=== PATIENT | male | born 1965 | race Caucasian/White ===

== ENCOUNTER 2016-09-22 00:27 | Emergency (ER) | payer OTHER ==
[~2016-09-22] VITALS: Ht 182.9 cm; Wt 81.6 kg
[2016-09-22 01:06] LABS: Basophils # (auto) 0.1 uL; Basophils % (auto) 0.5 % (0.0-2.0); CONDITION Y; DEFINITIVE SEE PRINTOUT; Eosinophils # (auto) 0.3 uL; Hematocrit 33.4 % (41.0-53.0); Hemoglobin 11.2 g/dL (13.5-17.5); Lymphocytes # (auto) 1.3 uL; Lymphocytes % (auto) 9.7 % (10.0-50.0); Mean Corpuscular Hemoglobin 32.5 pg (28.0-32.0); Mean Corpuscular Hgb Conc. 33.5 g/dL (32.0-36.0); Mean Corpuscular Volume 97.1 fL (80.0-100.0); Mean Platelet Volume 6.2 fL (7.4-10.4); Monocytes # (auto) 1.1 uL; Monocytes % (auto) 8.2 % (0.0-12.0); Neutrophils # (auto) 10.9 uL; Neutrophils % (auto) 79.6 % (37.0-80.0); Red Cell Distribution Width 13.6 % (11.6-16.0); White Blood Cell 13.7 10^3/uL (4.4-10.8)
[2016-09-22 01:16] LABS: Platelet Count (auto) 942 10^3/uL (140-450)
[2016-09-22 01:21] LABS: INR 0.96 (0.9-1.15); Partial Thromboplastin Time 26.1 sec (22.64-33.71); Prothrombin Time 10.5 sec (9.37-12.3)
[2016-09-22 01:26] LABS: Albumin 2.7 g/dL (3.4-5.0); Anion Gap 9 (5-15); BUN/Creatinine Ratio 8.5; Blood Urea Nitrogen 7 mg/dL (7-18); Calcium 8.2 mg/dL (8.5-10.1); Carbon Dioxide 27 mmol/L (21-32); Chloride 101 mmol/L (98-107); GFR African American 126 mL/min; GFR Non-African American 104 mL/min; Glucose 106 mg/dL (74-106); Magnesium 2.4 mg/dL (1.6-2.6); Potassium 4.1 mmol/L (3.5-5.1); Sodium 137 mmol/L (136-145)
[2016-09-22 01:28] LABS: B-Type Natriuretic Peptide 79.2 pg/mL (0-100); Temperature: 21.6 C (20.0-25.0)
[2016-09-22 01:39] LABS: Alkaline Phosphatase 132 U/L (45-117); Aspartate Aminotransferase 9 U/L (15-37); Bilirubin, Total 0.5 mg/dL (0.2-1.0); Total Protein 6.6 g/dL (6.4-8.2)
[2016-09-22] MEDS ORDERED: ALBUTEROL SULF 2.5 MG/0.5ML(0.5%) NEB SOLN NEB ONE (02:15)
[2016-09-22] MEDS ORDERED: IPRATROPIUM BROM 0.5 MG/2.5ML INH SOL NEB ONE (02:15)
[2016-09-22 03:25] VITALS: BP 146/91
== END 2016-09-22 06:01 | disposition home or self-care (01) ==
LOC: ER 00:28
DX: R14.3 Flatulence (principal); R14.1 Gas pain; R14.2 Eructation; J45.909 Unspecified asthma, uncomplicated; Z93.3 Colostomy status; Z47.1 Aftercare following joint replacement surgery
CPT/HCPCS: 36415; 71010; 80053; 83735; 83880; 84484; 85025; 85379; 85610; 85730; 93005; 94640

== ENCOUNTER 2016-12-05 16:02 | Emergency (ER) | payer OTHER ==
[~2016-12-05] VITALS: Ht 172.7 cm; Wt 77.1 kg
[2016-12-05 18:07] LABS: Hematocrit 28.8 % (41.0-53.0); Hemoglobin 9.2 g/dL (13.5-17.5); Mean Corpuscular Hemoglobin 24.7 pg (28.0-32.0); Mean Corpuscular Hgb Conc. 32.1 g/dL (32.0-36.0); Mean Corpuscular Volume 76.8 fL (80.0-100.0); Mean Platelet Volume 6.8 fL (6.9-10.8); Platelet Count (auto) 578 10^3/uL (140-450); Red Cell Distribution Width 16.4 % (11.8-14.3); White Blood Cell 18.1 10^3/uL (4.4-10.8)
[2016-12-05 18:23] LABS: Metamyelocytes % 0; Myelocytes % 0; Promyelocytes % 0; Reactive Lymphocytes 0
[2016-12-05 18:24] LABS: Albumin 2.6 g/dL (3.4-5.0); BUN/Creatinine Ratio 24.2; Bilirubin, Total 0.3 mg/dL (0.2-1.0); Calcium 7.9 mg/dL (8.5-10.1); Potassium 3.1 mmol/L (3.5-5.1); Total Protein 6.3 g/dL (6.4-8.2)
[2016-12-05 19:13] LABS: Large Platelets FEW
[2016-12-05 19:14] LABS: Hypochromia Slight; Microcytosis Slight; Platelet Estimate Increa; Stomatocytes Few
[2016-12-05 20:10] LABS: Urine RBC None Seen /hpf (0 - 3)
[2016-12-05 20:23] LABS: Urine Bilirubin Negative (Negative); Urine Blood Negative /uL (Negative); Urine Color Yellow (Yellow); Urine Glucose Normal (Normal); Urine Hyaline Cast FEW /lpf (0 - 2); Urine Ketone 2+ (Negative); Urine Nitrite Negative (Negative); Urine Urobilinogen Normal (Negative); Urine pH 5.5 (5.0-8.0)
[2016-12-05] MEDS ORDERED: PANTOPRAZOLE 40 MG/10 ML VIAL IV ONE (21:45)
[2016-12-05] MEDS ORDERED: SODIUM CHLORIDE 0.9% 1,000 ML IV ONE (21:45)
[2016-12-05 22:56] LABS: INR 1.01 (0.9-1.15); Partial Thromboplastin Time 25.3 sec (22.64-33.71)
[2016-12-06] MEDS ORDERED: cefTRIAXone 1GM/50ML D5W 50 ML IV ONE (00:15)
[2016-12-06] MEDS ORDERED: SODIUM CHLORIDE 0.9% 1,000 ML IV ONE (00:15)
[2016-12-06] MEDS ORDERED: POTASSIUM CHL 20 Meq TABLET PO ONE (00:15)
[2016-12-06] MEDS ORDERED: metroNIDAZOLE 500MG/100ML 100 ML IV ONE (02:30)
[2016-12-06] MEDS ORDERED: MORPHINE SULF INJ 2 MG/ML SYRINGE 1ML IV ONE (02:45)
[2016-12-06] MEDS ORDERED: ONDANSETRON HCL 4 MG/2 ML VIAL IV ONE (02:45)
[2016-12-06 04:03] VITALS: BP 106/63
== END 2016-12-06 04:32 | disposition short-term general hospital (02) ==
LOC: EDBD 16:02 → ER 16:02
DX: K85.90 Acute pancreatitis without necrosis or infection, unspecified (principal); D72.829 Elevated white blood cell count, unspecified; J45.909 Unspecified asthma, uncomplicated
CPT/HCPCS: 36415; 71010; 74176; 80053; 81001; 83605; 83690; 85007; 85027; 85610; 85730; 87040; 93005; 96361; 96365; 96367; 96375; 99285; C9113; J0696; J2270; J2405; J3490; J7030

== ENCOUNTER 2023-02-04 16:27 | Inpatient (IN) | payer OTHER ==
[~2023-02-04] VITALS: Ht 182.9 cm; Wt 69.0 kg
[~2023-02-04 16:27] MED LIST: CELE100C82 PO
[2023-02-04] MEDS ORDERED: SODIUM CHLORIDE 0.9% 1,000 ML IV ONE (17:00)
[2023-02-04] MEDS ORDERED: PANTOPRAZOLE 40 MG/10 ML VIAL INJ IV ONE (17:00)
[2023-02-04 17:36] LABS: Hemoglobin 18.1 g/dL (13.5-17.5)
[2023-02-04 17:39] LABS: Hematocrit 52.7 % (41.0-53.0); Mean Corpuscular Hemoglobin 31.2 pg (28.0-32.0); Mean Corpuscular Hgb Conc. 34.4 g/dL (32.0-36.0); Mean Corpuscular Volume 90.9 fL (80.0-100.0); Red Cell Distribution Width 14.5 % (11.8-14.3)
[2023-02-04 17:45] LABS: White Blood Cell 32.2 10^3/uL (4.4-10.8)
[2023-02-04 17:47] LABS: Basophils % (manual) 0 (0.0-2.0); Blast Cells 0; Eosinophils % (manual) 0 (0-7); Metamyelocytes % 0; Myelocytes % 0; Promyelocytes % 0; Reactive Lymphocytes 0
[2023-02-04 17:50] LABS: INR 1.43 (0.9-1.15); Partial Thromboplastin Time 30.9 SEC (24.5-34.5); Prothrombin Time 14.7 sec (9.3-11.8)
[2023-02-04] MEDS ORDERED: PIPERACILLIN-TAZOB 3.375GM 100 ML IV ONE (18:00)
[2023-02-04 18:02] LABS: Alanine Aminotransferase 21 U/L (7-40); Albumin 4.2 g/dL (3.2-4.8); Alkaline Phosphatase 177 U/L (46-116); Anion Gap 13 (5-15); Aspartate Aminotransferase 26 U/L (13-40); BUN/Creatinine Ratio 17.9 (10.0-20.0); Bilirubin, Total 0.7 mg/dL (0.2-1.0); Blood Urea Nitrogen 12 mg/dL (9-23); Carbon Dioxide 29 mmol/L (20-30); Chloride 95 mmol/L (98-107); Glucose 98 mg/dL (74-106); Potassium 2.9 mmol/L (3.5-5.1); Sodium 137 mmol/L (136-145)
[2023-02-04 18:18] LABS: Band Neutrophils % (manual) 3; Lymphocytes % (manual) 4 (10.0-50.0); Monocytes % (manual) 2 (0-12)
[2023-02-04 18:20] LABS: Platelet Estimate Adequate
[2023-02-04] MEDS ORDERED: ONDANSETRON HCL 4 MG/2 ML VIAL IV ONE (19:15)
[2023-02-04] MEDS ORDERED: POTASSIUM CHL 20 Meq TABLET PO ONE (19:15)
[2023-02-04 19:39] LABS: Hematocrit 47.3 % (41.0-53.0); Mean Corpuscular Hgb Conc. 33.9 g/dL (32.0-36.0); Mean Corpuscular Volume 91.5 fL (80.0-100.0); Red Blood Cells 5.16 10^6/uL (4.5-5.90); Red Cell Distribution Width 14.4 % (11.8-14.3)
[2023-02-04 19:46] LABS: White Blood Cell 30.5 10^3/uL (4.4-10.8)
[2023-02-04 19:48] LABS: Basophils % (manual) 0 (0.0-2.0); Blast Cells 0; Eosinophils % (manual) 0 (0-7); Metamyelocytes % 0; Myelocytes % 0; Promyelocytes % 0; Reactive Lymphocytes 0
[2023-02-04 19:59] LABS: Band Neutrophils % (manual) 6; Lymphocytes % (manual) 3 (10.0-50.0); Monocytes % (manual) 3 (0-12)
[2023-02-04 20:00] VITALS: PULSE 78; RESP 18; O2SAT 97
[2023-02-04 20:00] LABS: Platelet Estimate Adequate
[2023-02-04] MEDS ORDERED: POTASSIUM EFFERVESENT TAB 25 MEQ PO ONE (20:15)
[2023-02-04 21:37] LABS: COVID19 ANTIGEN SOFIA FIA NEGATIVE (NEGATIVE)
[2023-02-04 22:48] LABS: Urine Bacteria NONE SEEN /hpf (None Seen); Urine Blood Negative /uL (Negative); Urine Clarity Clear (Clear); Urine Color Yellow (Yellow); Urine Mucus FEW (None Seen); Urine Protein, UAD 1+ (Negative); Urine Specific Gravity 1.029 (1.001-1.035); Urine Urobilinogen Normal (Negative); Urine WBC 2 /hpf (0 - 3)
[2023-02-04 23:17] LABS: Hematocrit 49.5 % (41.0-53.0); Hemoglobin 16.7 g/dL (13.5-17.5); Mean Corpuscular Hemoglobin 30.9 pg (28.0-32.0); Mean Corpuscular Hgb Conc. 33.7 g/dL (32.0-36.0); Mean Corpuscular Volume 91.6 fL (80.0-100.0); Red Cell Distribution Width 14.9 % (11.8-14.3); White Blood Cell 29.9 10^3/uL (4.4-10.8)
[2023-02-04 23:23] LABS: Basophils % (manual) 0 (0.0-2.0); Blast Cells 0; Metamyelocytes % 0; Myelocytes % 0; Promyelocytes % 0; Reactive Lymphocytes 0
[2023-02-04 23:51] LABS: Band Neutrophils % (manual) 6; Eosinophils % (manual) 1 (0-7); Lymphocytes % (manual) 3 (10.0-50.0); Monocytes % (manual) 8 (0-12)
[2023-02-04 23:52] LABS: Platelet Estimate Adequate
[2023-02-05] VITALS (8 sets, daily range): BP systolic 121–136; BP diastolic 75–90; PULSE 71–84; RESP 16–19; TEMP 98.2–98.6; O2SAT 94–98
[2023-02-05] MEDS ORDERED: ONDANSETRON HCL 4 MG/2 ML VIAL IV PRN (01:00)
[2023-02-05] MEDS ORDERED: ACETAMINOPHEN 325 MG TAB PO PRN (01:00)
[2023-02-05] MEDS: MORPHINE SULFATE INJ 2 MG/ml SYRG IV PRN ×3 (04:59→18:23)
[2023-02-05] MEDS: PIPERACILLIN-TAZOB 3.375GM 100 ML IV SCH ×2 (06:40→12:33)
[2023-02-05] MEDS ORDERED: PANTOPRAZOLE 40 MG TAB PO SCH (10:00)
[2023-02-05] MEDS ORDERED: COLC1TAB3 PO (10:29)
[2023-02-05] MEDS ORDERED: VANCOMYCIN HCL 125MG/5ML ORAL SOL PO ONE (15:30)
[2023-02-05] MEDS ORDERED: THIAMINE 100mg/ml INJ (200mg/2ml VIAL) IV ONE (15:30)
[2023-02-05] MEDS: D5W/SOD CHL 0.45%/KCL 40MEQ 1,000 ML IV SCH (18:14)
[2023-02-05] MEDS: VANCOMYCIN HCL 125MG/5ML ORAL SOL PO SCH (21:17)
[2023-02-05] MEDS: metroNIDAZOLE 500 MG TAB PO SCH (21:17)
[2023-02-05] MEDS: HYDROcodone-ACET 5/325MG TAB PO PRN (23:39)
[2023-02-06] VITALS (10 sets, daily range): BP systolic 126–167; BP diastolic 86–97; PULSE 63–88; RESP 12–18; TEMP 98.2–98.7; O2SAT 96–100
[2023-02-06] MEDS: MORPHINE SULFATE INJ 2 MG/ml SYRG IV PRN ×4 (01:35→21:48)
[2023-02-06] MEDS: D5W/SOD CHL 0.45%/KCL 40MEQ 1,000 ML IV SCH ×3 (04:50→21:23)
[2023-02-06] MEDS: VANCOMYCIN HCL 125MG/5ML ORAL SOL PO SCH ×4 (06:00→23:57)
[2023-02-06] MEDS: metroNIDAZOLE 500 MG TAB PO SCH ×3 (06:00→21:43)
[2023-02-06 06:19] LABS: Basophils # (auto) 0 10 ^3/uL (0-0.2); Basophils % (auto) 0.3 % (0.0-2.0); Eosinophils # (auto) 0.4 10 ^3/uL (0-0.8); Eosinophils % (auto) 2.8 % (0.0-7.0); Hematocrit 43.5 % (41.0-53.0); Hemoglobin 14.8 g/dL (13.5-17.5); Lymphocytes # (auto) 1.2 10 ^3/uL (0.4-5.4); Lymphocytes % (auto) 8.6 % (10.0-50.0); Mean Corpuscular Hgb Conc. 34.1 g/dL (32.0-36.0); Monocytes # (auto) 1.1 10 ^3/uL (0-1.3); Monocytes % (auto) 7.9 % (0.0-12.0); Neutrophils # (auto) 11.4 10 ^3/uL (1.6-8.6); Neutrophils % (auto) 80.4 % (37.0-80.0); Nucleated Red Blood Cells % 0.1 %; Red Blood Cells 4.79 10^6/uL (4.5-5.90); Red Cell Distribution Width 14.7 % (11.8-14.3); White Blood Cell 14.2 10^3/uL (4.4-10.8)
[2023-02-06 07:03] LABS: Alanine Aminotransferase 14 U/L (7-40); Albumin 3.1 g/dL (3.2-4.8); Alkaline Phosphatase 97 U/L (46-116); Anion Gap 8 (5-15); Aspartate Aminotransferase 16 U/L (13-40); Calcium 7.4 mg/dL (8.7-10.4); Carbon Dioxide 27 mmol/L (20-30); Chloride 101 mmol/L (98-107); Glucose 91 mg/dL (74-106); Potassium 2.8 mmol/L (3.5-5.1); Sodium 136 mmol/L (136-145); Uric Acid 7.2 mg/dL (3.7-9.2)
[2023-02-06 07:04] LABS: Bilirubin, Total 0.7 mg/dL (0.2-1.0)
[2023-02-06 07:12] LABS: BUN/Creatinine Ratio 9.4 (10.0-20.0); Blood Urea Nitrogen < 5 mg/dL (9-23)
[2023-02-06] MEDS: FLORASTOR (S. BOULARDII) 250 MG CAP PO SCH (09:57)
[2023-02-06] MEDS: THIAMINE 100mg/ml INJ (200mg/2ml VIAL) IV SCH (09:57)
[2023-02-06] MEDS: PANTOPRAZOLE 40 MG/10 ML VIAL INJ IV SCH (09:57)
[2023-02-06] MEDS ORDERED: POTASSIUM CHLORIDE 40 MEQ, LIDOCAINE 1% (LOCAL ANESTH.) 4 ML in SODIUM CHL 0.9% 250 ML IV ONE (12:45)
[2023-02-06] MEDS ORDERED: POTASSIUM EFFERVESENT TAB 25 MEQ PO ONE (12:45)
[2023-02-06] MEDS ORDERED: cefTRIAXone 1GM/50ML D5W 50 ML IV ONE (13:00)
[2023-02-06] MEDS ORDERED: SODIUM CHL 0.9% 50 ML ONE ×2 (15:39→16:51)
[2023-02-06] MEDS ORDERED: MIDAZOLAM HCL 2MG/2ML 2ml VIAL (1mg/ml) ONE (15:39)
[2023-02-06] MEDS ORDERED: fentaNYL CITRATE 100 MCG/2 ML VL ONE (15:39)
[2023-02-06] MEDS ORDERED: LIDOCAINE 2%HCL (LOCAL ANESTH.) INJ 20ML MDV ONE (15:39)
[2023-02-06] MEDS ORDERED: ANGIOMAX 250 MG VIAL IV ONE ×2 (15:39→16:51)
[2023-02-06] MEDS ORDERED: IOHEXOL 350 MG/ML 100ML IJ ONE ×2 (15:40→16:26)
[2023-02-06] MEDS ORDERED: IODIXANOL 320MG/ML 100ML BTL IV ONE (17:38)
[2023-02-06] MEDS: RIVAROXABAN 2.5 MG TAB PO SCH (22:00)
[2023-02-07] MEDS: MORPHINE SULFATE INJ 2 MG/ml SYRG IV PRN ×2 (03:55→10:23)
[2023-02-07 04:00] VITALS: BP 152/83; PULSE 79; RESP 17; TEMP 98.5; O2SAT 96
[2023-02-07] MEDS: metroNIDAZOLE 500 MG TAB PO SCH ×2 (06:19→14:04)
[2023-02-07] MEDS: VANCOMYCIN HCL 125MG/5ML ORAL SOL PO SCH ×3 (06:19→18:02)
[2023-02-07 06:52] LABS: Basophils # (auto) 0 10 ^3/uL (0-0.2); Basophils % (auto) 0.5 % (0.0-2.0); Eosinophils # (auto) 0.4 10 ^3/uL (0-0.8); Hematocrit 41.3 % (41.0-53.0); Hemoglobin 14.3 g/dL (13.5-17.5); Mean Corpuscular Hemoglobin 31.2 pg (28.0-32.0); Mean Corpuscular Hgb Conc. 34.7 g/dL (32.0-36.0); Monocytes # (auto) 1.5 10 ^3/uL (0-1.3); Monocytes % (auto) 13.8 % (0.0-12.0); Neutrophils # (auto) 7.8 10 ^3/uL (1.6-8.6); Neutrophils % (auto) 72.7 % (37.0-80.0); Red Blood Cells 4.59 10^6/uL (4.5-5.90); Red Cell Distribution Width 14.3 % (11.8-14.3); White Blood Cell 10.7 10^3/uL (4.4-10.8)
[2023-02-07 08:00] VITALS: PULSE 88
[2023-02-07 09:00] VITALS: BP 147/95; PULSE 89; RESP 18; TEMP 98.4; O2SAT 97
[2023-02-07] MEDS ORDERED: cefTRIAXone 1GM/50ML D5W 50 ML IV SCH (09:00)
[2023-02-07] MEDS: RIVAROXABAN 2.5 MG TAB PO SCH (10:00)
[2023-02-07] MEDS: THIAMINE 100mg/ml INJ (200mg/2ml VIAL) IV SCH (10:22)
[2023-02-07] MEDS: PANTOPRAZOLE 40 MG/10 ML VIAL INJ IV SCH (10:22)
[2023-02-07] MEDS: FLORASTOR (S. BOULARDII) 250 MG CAP PO SCH (10:22)
[2023-02-07] MEDS ORDERED: THIAMINE HCL 100 MG TAB PO ONE (12:15)
[2023-02-07 13:00] VITALS: BP 125/72; PULSE 76; RESP 16; TEMP 98.8; O2SAT 99
[2023-02-07] MEDS: HYDROcodone-ACET 5/325MG TAB PO PRN (15:26)
[2023-02-07 16:46] VITALS: BP 132/82; PULSE 79; RESP 17; TEMP 98.7; O2SAT 97
[2023-02-07 18:16] VITALS: TEMP 37.1
[2023-02-08] MEDS ORDERED: THIAMINE HCL 100 MG TAB PO SCH (10:00)
== END 2023-02-07 22:00 | disposition short-term general hospital (02) | DRG 854 ==
LOC: ER 16:27 → EDBD 16:27 → OVERFLOW 02-05 00:59 → EAST 02-05 10:01 → TELE-EAST 02-05 10:03
PROVIDERS: ADMIT Nurse Practitioner; ATTEND Internal Medicine
PROC: 047 Lower Arteries, Dilation (ICD-10-PCS; principal; 2023-02-06)
PROC: B41GYZZ Fluoroscopy of Left Lower Extremity Arteries using Other Contrast (ICD-10-PCS; 2023-02-06)
PROC: B41FYZZ Fluoroscopy of Right Lower Extremity Arteries using Other Contrast (ICD-10-PCS; 2023-02-06)
DX: A41.9 Sepsis, unspecified organism (principal); A04.72 Enterocolitis due to Clostridium difficile, not specified as recurrent; K92.2 Gastrointestinal hemorrhage, unspecified; E87.6 Hypokalemia; M10.9 Gout, unspecified; I73.9 Peripheral vascular disease, unspecified; E88.09 Other disorders of plasma-protein metabolism, not elsewhere classified; Z20.822 Contact with and (suspected) exposure to COVID-19; I10 Essential (primary) hypertension; J45.909 Unspecified asthma, uncomplicated; Z87.11 Personal history of peptic ulcer disease; Z93.3 Colostomy status; Z87.891 Personal history of nicotine dependence
CPT/HCPCS: 36415; 37226; 73700; 74176; 75716; 80053; 81001; 82270; 83605; 83690; 84132; 84425; 84484; 84550; 85007; 85025; 85027; 85048; 85610; 85730; 86850; 86900; 86901; 87177; 87426; 87493; 93005; 93926; 96361; 96365; 96375; 99152; C1769; C1876; C9113; G0378; J0696; J2001; J2250; J2405; J2543; Q9967

== ENCOUNTER 2023-02-13 23:51 | Emergency (ER) | payer OTHER ==
[~2023-02-13] VITALS: Ht 182.9 cm; Wt 70.3 kg
[~2023-02-13 23:51] MED LIST changes: +COLC1TAB3 PO
[2023-02-14] VITALS: PULSE 145; RESP 19; O2SAT 97
[2023-02-14] MEDS ORDERED: VANCOMYCIN PER PHARMACY 0 MG IV SCH (00:15)
[2023-02-14] MEDS ORDERED: SODIUM CHLORIDE 0.9% 1,800 ML IV ONE (00:15)
[2023-02-14] MEDS ORDERED: ACETAMINOPHEN 325 MG TAB PO ONE (00:15)
[2023-02-14] MEDS ORDERED: dilTIAZem 25 MG/5 ML VIAL IV ONE ×2 (00:15→00:45)
[2023-02-14] MEDS ORDERED: LORazepam 2MG/ML-1ML VIAL IV PRN (00:15)
[2023-02-14] MEDS ORDERED: LORazepam 2MG/ML-1ML VIAL IV ONE (00:15)
[2023-02-14] MEDS ORDERED: ALBUMIN 25% 100 ML IV ONE (00:45)
[2023-02-14] MEDS ORDERED: VANCOMYCIN 1GM/250ML 250 ML IV ONE ×2 (01:00→03:00)
[2023-02-14 01:48] LABS: Hemoglobin 10.2 g/dL (13.5-17.5); Red Cell Distribution Width 14.9 % (11.8-14.3)
[2023-02-14 01:49] LABS: Hematocrit 31.1 % (41.0-53.0); Mean Corpuscular Hemoglobin 30.8 pg (28.0-32.0); Mean Corpuscular Hgb Conc. 32.8 g/dL (32.0-36.0); Mean Corpuscular Volume 93.8 fL (80.0-100.0); Red Blood Cells 3.31 10^6/uL (4.5-5.90); White Blood Cell 16.3 10^3/uL (4.4-10.8)
[2023-02-14 01:51] LABS: Band Neutrophils % (manual) 0; Basophils % (manual) 0 (0.0-2.0); Blast Cells 0; Eosinophils % (manual) 0 (0-7); Metamyelocytes % 0; Myelocytes % 0; Promyelocytes % 0; Reactive Lymphocytes 0
[2023-02-14] MEDS: PIPERACILLIN-TAZOB 3.375GM 100 ML IV SCH ×3 (02:02→12:23)
[2023-02-14 02:18] LABS: Albumin 2.9 g/dL (3.2-4.8); Alkaline Phosphatase 66 U/L (46-116); Anion Gap 11 (5-15); Aspartate Aminotransferase 11 U/L (13-40); BUN/Creatinine Ratio 25.6 (10.0-20.0); Blood Urea Nitrogen 22 mg/dL (9-23); Calcium 7.1 mg/dL (8.7-10.4); Carbon Dioxide 18 mmol/L (20-30); Chloride 110 mmol/L (98-107); Glucose 128 mg/dL (74-106); Magnesium 1.4 mg/dL (1.6-2.6); Potassium 3.8 mmol/L (3.5-5.1); Sodium 139 mmol/L (136-145)
[2023-02-14 02:19] LABS: Bilirubin, Total 0.3 mg/dL (0.2-1.0); Total Protein 4.9 g/dL (5.7-8.2)
[2023-02-14 02:23] LABS: Alanine Aminotransferase < 9 U/L (7-40)
[2023-02-14 02:51] LABS: Lactic Acid w/Reflex 3.7 mmol/L (0.4-2.0)
[2023-02-14] MEDS ORDERED: IOHEXOL 300 MG/ML 100ML BOTTLE IJ ONE (03:06)
[2023-02-14 03:17] LABS: INR 1.21 (0.9-1.15); Partial Thromboplastin Time 26.3 SEC (24.5-34.5); Prothrombin Time 12.5 sec (9.3-11.8)
[2023-02-14 03:41] LABS: Lymphocytes % (manual) 8 (10.0-50.0); Monocytes % (manual) 9 (0-12); Platelet Estimate Increased
[2023-02-14 05:58] LABS: Urine Bacteria NONE SEEN /hpf (None Seen); Urine Blood Negative /uL (Negative); Urine Clarity Clear (Clear); Urine Color Yellow (Yellow); Urine Hyaline Cast MOD /lpf (0 - 2); Urine Protein, UAD Negative (Negative); Urine Specific Gravity 1.019 (1.001-1.035); Urine Urobilinogen Normal (Negative); Urine WBC 3 /hpf (0 - 3); Urine pH 5.5 (5.0-8.0)
[2023-02-14 06:07] LABS: Barbiturate Scree,Urine Neg (NEGATIVE); Benzodiazephine Screen, Urine Neg (NEGATIVE); Cannabinoid Screen, Urine Pos (NEGATIVE); Cocaine Screen, Urine Neg (NEGATIVE); Opiate Scree,Urine Neg (NEGATIVE); Phencyclidine Screen, Urine Neg (NEGATIVE)
[2023-02-14 06:55] LABS: Amphetamine Screen, Urine Neg (NEGATIVE)
[2023-02-14] MEDS ORDERED: VANCOMYCIN HCL 125MG/5ML ORAL SOL PO ONE (08:00)
[2023-02-14 08:10] VITALS: PULSE 75; RESP 16; O2SAT 98
[2023-02-14] MEDS ORDERED: VANCOMYCIN 1GM/250ML 250 ML IV SCH (14:00)
[2023-02-14 14:45] VITALS: BP 130/83; PULSE 100; RESP 20; TEMP 98.5; O2SAT 96
== END 2023-02-14 15:09 | disposition home or self-care (01) ==
LOC: EDBD 23:51 → ER 23:51
DX: A41.9 Sepsis, unspecified organism (principal); E87.20 Acidosis, unspecified; D72.829 Elevated white blood cell count, unspecified; I73.9 Peripheral vascular disease, unspecified; R10.9 Unspecified abdominal pain; M10.9 Gout, unspecified; J45.909 Unspecified asthma, uncomplicated; Z86.2 Personal history of diseases of the blood and blood-forming organs and certain disorders involving the immune mechanism; Z79.899 Other long term (current) drug therapy
CPT/HCPCS: 36415; 71045; 71260; 74177; 80053; 80307; 80320; 81001; 82553; 83605; 83735; 83880; 84443; 84484; 85007; 85027; 85379; 85384; 85610; 85730; 86850; 86900; 86901; 87040; 93005; 96361; 96365; 96366; 96367; 96368; 96375; 99291; J2060; J2543; J3370; J7030; P9047; Q9967